=== PATIENT | male | born 1950 | race Caucasian/White ===

== ENCOUNTER → 2017-01-29 | Day surgery (SDC) | payer MEDICARE, OTHER ==
[~2017-01-29] VITALS: Ht 172.7 cm; Wt 70.0 kg
[~2017-01-29] MED LIST: ASPI81CH CHEW; BUPIVACAINE HCL PF 0.5% 30 ML VIAL ONE; CHLORHEXIDINE GLUCONATE 2 % 1 PACK (2 CLOTHS) TOPICAL PRN; CIPR-9 PO; CIPROFLOXACIN 400 MG PREMIX 200 ML ONE; CIPROFLOXACIN/DEXT 400 MG/200 ML IV PRN; GLIM1TAB PO; HYDR-3288 PO; INSULIN HUMAN REGULAR 1,000 UNITS/10 ML VIAL SQ PRN; LACTATED RINGER'S 1000 ML INJ 1,000 ML IV ONE; LACTATED RINGER'S 1000 ML IV PRN; LIDOCAINE HCL 2% 50 ML VIAL ONE; METOPROLOL TARTRATE 25 MG TAB PO PRN; MIDAZOLAM HCL 2 MG/2 ML VIAL ONE; NEOMYCIN/POLYMYXIN 1 ML G.U. IRRIGANT ONE; ONDANSETRON HCL 4 MG/2 ML VIAL IV PUSH ONE; PHENYLEPH/NS 1000 MCG/10 ML SYR IV ONE; POTASOL PO; POVIDONE IODINE 5% (ANTISEPSIS KIT) 4 APPLICATIONS EACH NARE PRN; PROPOFOL 200 MG/20 ML AMP IV ONE; SODIUM CHLORID 0.9% 500 ML IV PRN; ePHEDrine/NS 25 MG/5 ML SYR IV ONE
[2017-01-29 07:05] LABS: HEMATOCRIT 45.2 % (39.0-51.0); MEAN CELL VOLUME 85.4 FL (80.0-100.0); MEAN CORPUSCULAR HEMOGLOBIN 28.4 PG (27.0-34.0); MEAN CORPUSCULAR HGB CONC 33.3 % (32.0-36.0); PLATELET COUNT 265 TH/MM3 (150-450); RED CELL DISTRIBUTION WIDTH 12.7 % (11.6-17.2); REVIEW FLAG FINAL; WHITE BLOOD COUNT 9.9 TH/MM3 (4.0-11.0)
[2017-01-29 07:11] VITALS: BP 147/82; PULSE 84; RESP 20; TEMP 98.2; O2SAT 100
--- NOTE | 2017-01-29 09:28 | EKG ---
Date Performed: 01/29/2017 Time Performed: 06:59:35 PTAGE: 66 years EKG: Sinus rhythm POSSIBLE LEFT ATRIAL ENLARGEMENT BORDERLINE ECG NO PREVIOUS TRACING DOCTOR: Gregorio Pennington Interpretating Date/Time 01/29/2017 09:26:59
[2017-01-29 11:20] VITALS: BP 122/72; PULSE 90; RESP 16; TEMP 98.1; O2SAT 99
--- NOTE | 2017-01-29 11:27 | MP ---
cc: RAJ OCHOA III, M.D. DATE OF SURGERY 01/29/2017 PREOPERATIVE DIAGNOSIS 1. Right cubital tunnel syndrome and an ulnar neuropathy 2. Right carpal tunnel syndrome PROCEDURE 1. Right ulnar nerve release at the elbow with submuscular transposition 2. Right open carpal tunnel release 3. Right ulnar nerve release at the wrist SURGEON Raj Ochoa III, MD PROCEDURE The patient brought to the operating room, placed supine on the operating table after the correct site and side of surgery were verified by members of each team in the room multiple times including the patient, myself and after adequate preop markings and preoperative written consent was verified by everyone after an adequate preoperative time-out was performed to everyone's satisfaction. After adequate general anesthesia had been achieved, the right upper extremity was prepped and draped in the traditional sterile surgical fashion. A 50/50 mixture of 2% plain lidocaine and 0.5% plain Marcaine was infiltrated in the skin and subcutaneous tissue in the area of the planned incisions. The limb was exsanguinated with an Taj wrap. A highly placed well-padded axillary tourniquet was inflated 200 mmHg for a total 45 minutes. The carpal tunnel was addressed first. A stair step incision over the flexion crease of the wrist was made and carried down through skin and subcutaneous tissue. Blunt dissection was performed. Bipolar electrocautery was used as needed deemed by the transverse carpal ligament was identified and divided in its entirety from its proximal most to its distal-most extents and under loupe visualization completely freeing the carpal tunnel contents. The nerve was intact. There was no evidence of any other anatomic abnormality. There was no evidence of any mass effect. Attention was then turned ulnarly and the ulnar nerve was identified and then freed from the surrounding investing tissue at the wrist into the palm where it bifurcated and proximally into the forearm. It was in continuity with no other evidence of constriction or injury. Thorough irrigation with saline was performed. The skin edges were reapproximated using running and interrupted 4-0 nylon sutures. Attention was then paid to the elbow where a hockey-stick shaped incision was made 1 cm anterior to the ulnar groove and blunt dissection was performed. Bipolar electrocautery was used as needed. The median epicondyle was identified. A large branch of the nerve was also identified superficially through all the aponeurotic layers and this was protected the entire time. The ulnar nerve was identified through blunt and sharp dissection and then dissected free from its the arcade of [place] proximally to the bifurcation and the forearm musculature distally. The intermuscular septum was then divided as well. The stair step incision in the flexor aponeurosis was made. A band within the belly the muscles was made, was smooth with no prominent areas. The nerve was placed within it and using 2-0 Vicryl sutures, it was secured in place by closing these flaps over it. Passive range of motion was performed. of the nerve was possible, there was no subluxation. Deep subcutaneous fat was tacked to the median epicondyle posterior to the nerve to prevent any chance of subluxation. The nerve moved freely. There is no area of constriction. A thorough irrigation was performed. The axillary tourniquet was released. The hand and all the fingers became immediately soft, pink and warm and had brisk capillary refill of less than two seconds. There was no bleeding at all. A thorough irrigation with two liters worth of saline was performed. The deep subcutaneous tissues were reapproximated using 2-0 Vicryl sutures. The large branch of the ulnar nerve identified earlier was still intact and protected and placed within the fatty tissue. The skin edges were then reapproximated using interrupted and running 4-0 nylon sutures with a one-quarter inch Dora dressing divided in half longitudinally brought out distally. The hand and arm were thoroughly cleansed and dried. Betadine and Adaptic dressings were applied on top of the wounds followed by a very bulky, well-padded, well molded fluffy dressing and a long-arm posterior elbow splint was made keeping the elbow flexed 90 degrees. The patient was awakened from anesthesia and transported to Post Anesthesia Care Unit awake and in stable condition at the end of the case. Sponge, needle and instrument counts were correct at the case as reported by nurses in the room. MD RODRIGUEZ Collins III/DAVIS /10:13 AM /11:19 AM
== END | disposition home or self-care (01) ==
LOC: PHSDC 06:07
PROVIDERS: ATTEND Orthopaedic Surgery Hand Surgery
DX: G56.01 Carpal tunnel syndrome, right upper limb (principal); G56.21 Lesion of ulnar nerve, right upper limb; I20.9 Angina pectoris, unspecified; E11.9 Type 2 diabetes mellitus without complications; Z79.84 Long term (current) use of oral hypoglycemic drugs
CPT/HCPCS: 01710; 01810; 36415; 64718; 64721; 85027; 93005; J0744; J2250; J2370; J2405; J3010; J7120